=== PATIENT | male | born 1970 | race Caucasian/White ===

== ENCOUNTER 2019-10-29 13:50 | Emergency (ER) | payer MEDICARE, OTHER ==
--- NOTE | 2019-10-29 13:55 | NUR ---
Patient left without being completely triaged. Patient A/Ox4 and mentation intact. Patient states that he changed his mind and does not want to be seen at this time. Does not pose as a threat to himself or others.
== END 2019-10-29 14:16 | disposition left against medical advice (07) ==
LOC: ER 13:50
DX: Z75.3 Unavailability and inaccessibility of health-care facilities (principal)

== ENCOUNTER → 2019-10-29 | Emergency (ER) | payer MEDICARE, OTHER ==
[~2019-10-29] VITALS: Ht 180.3 cm; Wt 74.8 kg
== END | disposition left against medical advice (07) ==
LOC: ER 13:11
DX: Z75.3 Unavailability and inaccessibility of health-care facilities (principal)

== ENCOUNTER 2022-04-13 17:13 | Inpatient (IN) | payer MEDICARE, OTHER ==
[~2022-04-13] VITALS: Ht 193 cm; Wt 73.0 kg
[2022-04-13] MEDS ORDERED: IV NORMAL SALINE 1000 ML BAG IV ONE ×2 (18:45→19:45)
[2022-04-13 19:00] LABS: HEMATOCRIT 36.3 % (36.7-47.1); MEAN CORPUSCULAR HEMOGLOBIN 30.5 uug (23.8-33.4); MEAN CORPUSCULAR VOLUME 86.8 fL (73.0-96.2); PLATELET COUNT (AUTO) 314 K/uL (152-348)
--- NOTE | 2022-04-13 19:13 | NUR ---
Endorsed to Carolyn LOZA.
[2022-04-13 19:32] LABS: BILIRUBIN,DIRECT 0.3 mg/dL (0.0-0.2); BILIRUBIN,TOTAL 0.7 mg/dL (0.2-1.0); CARBON DIOXIDE 25 mmol/L (21-32); CHLORIDE 97 mmol/L (98-107); CREATININE 1.2 mg/dL (0.6-1.3); GLUCOSE 85 mg/dL (74-106); UREA NITROGEN, BLOOD 50 mg/dL (7-18)
[2022-04-13 19:33] LABS: ALANINE AMINOTRANSFERASE 31 U/L (16-63); ALKALINE PHOSPHATASE 93 U/L (50-136); ASPARTATE AMINOTRANSFERASE 83 U/L (15-37); TOTAL PROTEIN, SERUM 8.9 g/dL (6.4-8.2)
[2022-04-13 19:38] LABS: ETHANOL < 3 MG/DL (0-0)
[2022-04-13 19:40] LABS: ACETAMINOPHEN < 10.0 ug/mL (10-30)
[2022-04-13 20:00] VITALS: BP 133/74
[2022-04-13 20:20] LABS: *CLARITY,URINE CLEAR (CLEAR); *COLOR,URINE YELLOW (YELLOW); *KETONES,URINE 2+ (NEGATIVE); *UROBILINOGEN,URINE 0.2 E.U./dl (NORMAL); LEUKOCYTE ESTERASE ,URINE NEGATIVE (NEGATIVE); NITRITE, URINE NEGATIVE (NEGATIVE); UGLUCOSE NEGATIVE (NEGATIVE)
[2022-04-13 20:25] LABS: *BLOOD, URINE TRACE (NEGATIVE)
[2022-04-13 20:26] LABS: *BILIRUBIN,URIN 1+ (NEGATIVE)
[2022-04-13] MEDS ORDERED: LORAZEPAM 2 MG/1 ML VIAL IV ONE (20:30)
[2022-04-13 20:56] LABS: *AMPHETAMINE, URINE NEGATIVE (NEGATIVE); *CANNABINOID, URINE NEGATIVE (NEGATIVE); *COCCAINE, URINE NEGATIVE (NEGATIVE); *OPIATE, URINE NEGATIVE (NEGATIVE); *PHENCYCLIDINE SCREEN,URINE NEGATIVE (NEGATIVE)
--- NOTE | 2022-04-13 21:24 | NUR ---
Called [facility] for panel call. Felicita MOLDING LINE ASSISTANT phone technician. Waiting for call back.
--- NOTE | 2022-04-13 21:28 | NUR ---
Patient has been accepted by Felicita PANIAGUA.
[2022-04-13 21:30] LABS: BACTERIA,URINE NONE SEEN /HPF (NONE SEEN); RBC,URINE 0-3 /HPF (0-3); SQUAMOUS EPITHELIAL CELL,UR FEW /HPF (NONE SEEN); WBC,URINE 0-3 /HPF (0-3)
--- NOTE | 2022-04-13 21:33 | NUR ---
Called third floor. Spoke to Kaycee LOZA. Pt assigned to TELE bed 304.
--- NOTE | 2022-04-13 21:46 | NUR ---
Gave report to Will DAGO.
--- NOTE | 2022-04-13 21:47 | NUR ---
Told ER claims correspondence clerk, patient ready for roll over.
[2022-04-13] MEDS ORDERED: ONDANSETRON 4 MG/2 ML VIAL IV PRN (22:15)
[2022-04-13] MEDS ORDERED: ACETAMINOPHEN 325 MG TABLET PO PRN (22:15)
[2022-04-13] MEDS ORDERED: MAGNESIUM HYDROXIDE 30 ML LIQUID UDC PO PRN (22:15)
[2022-04-13 22:30] VITALS: BP 133/74
--- NOTE | 2022-04-13 22:30 | NUR ---
Admitted patient in Med surg floor under the care of Joanne Mims HOOKER ON, patient too drowsy, eyes open but do not respond to question, unable to obtain medical history due to AMS/too drowsy, assisted to bed, with both lower leg abrasion, patient has long toe nails, no teeth on upper and lower, no dentures, patient able to swallow crushed meds with apple sauce. bed alarm on, call light within reach.
[2022-04-13] MEDS: FOLIC ACID 1 MG TABLET PO SCH (23:10)
[2022-04-13] MEDS: CHLORDIAZEPOXIDE HCL 25 MG CAPSULE PO SCH (23:10)
[2022-04-13] MEDS: THIAMINE HCL 100 MG TABLET PO SCH (23:10)
[2022-04-13] MEDS: ENOXAPARIN SODIUM 40 MG/0.4 ML DISP.SYRIN SQ SCH (23:11)
[2022-04-13] MEDS: IV NS 1000 ML 1,000 ML IV PRN (23:20)
[2022-04-14 04:00] VITALS: BP 107/54
[2022-04-14] MEDS: CHLORDIAZEPOXIDE HCL 25 MG CAPSULE PO SCH ×3 (05:22→21:58)
[2022-04-14 06:28] LABS: HEMATOCRIT 27.9 % (36.7-47.1); MEAN CORPUSCULAR HEMOGLOBIN 31.8 uug (23.8-33.4); MEAN CORPUSCULAR VOLUME 87.2 fL (73.0-96.2); PLATELET COUNT (AUTO) 243 K/uL (152-348)
--- NOTE | 2022-04-14 06:36 | NUR ---
Patient awake, no sob no chest pain, voiding well, no complain of pain, cont on IV hydration, cooperative with care, cont to monitor.
[2022-04-14 06:52] LABS: MAGNESIUM 1.7 mg/dL (1.8-2.4); PHOSPHOROUS 3.4 mg/dL (2.5-4.9); POTASSIUM 3.7 mmol/L (3.5-5.1)
[2022-04-14] MEDS: THIAMINE HCL 100 MG TABLET PO SCH (08:18)
[2022-04-14] MEDS: FOLIC ACID 1 MG TABLET PO SCH (08:18)
[2022-04-14] MEDS: IV NS 1000 ML 1,000 ML IV PRN ×2 (08:26→17:48)
[2022-04-14] MEDS ORDERED: MAGNESIUM OXIDE 400 MG TABLET PO ONE (10:00)
[2022-04-14 11:41] VITALS: BP 95/54
--- NOTE | 2022-04-14 11:53 | NUR ---
Social Work consult was requested on [facility] for homeless resources. Patient is a 51-year-old male admitted to the hospital for altered mental status. Patient appears lethargic. Patient is disoriented and confused. Patient in oriented X0. AURELIA was unable to ascertain primary contact information. AURELIA was unable to ascertain pre-admission living arrangement. AURELIA provided the patient with homeless resources for [facility] [address] [place] [address] ([phone]) and [facility] [address] [facility] [address] ([phone]). AURELIA gave resources for [facility] [address] [address]. AURELIA will continue to follow up. AURELIA unable to ascertain history of substance abuse and toxicology report was negative. AURELIA was unable to ascertain history of psychiatric diagnosis. AURELIA informed pillowcase sewerHerb for the discharge planning.
[2022-04-14 16:00] VITALS: BP 101/54
[2022-04-14 20:00] VITALS: BP 93/56
[2022-04-14] MEDS: ENOXAPARIN SODIUM 40 MG/0.4 ML DISP.SYRIN SQ SCH (20:26)
[2022-04-15] MEDS: IV NS 1000 ML 1,000 ML IV PRN (02:26)
[2022-04-15 04:00] VITALS: BP 105/61
[2022-04-15] MEDS: CHLORDIAZEPOXIDE HCL 25 MG CAPSULE PO SCH (06:02)
[2022-04-15 07:16] LABS: CARBON DIOXIDE 25 mmol/L (21-32); CHLORIDE 106 mmol/L (98-107); CREATININE 0.8 mg/dL (0.6-1.3); GLUCOSE 82 mg/dL (74-106); MAGNESIUM 1.6 mg/dL (1.8-2.4); POTASSIUM 3.7 mmol/L (3.5-5.1); UREA NITROGEN, BLOOD 14 mg/dL (7-18)
[2022-04-15] MEDS: FOLIC ACID 1 MG TABLET PO SCH (08:14)
[2022-04-15] MEDS: THIAMINE HCL 100 MG TABLET PO SCH (08:14)
[2022-04-15] MEDS ORDERED: DIVALPROEX 500 MG TABLET.DR PO SCH (09:00)
[2022-04-15] MEDS ORDERED: MAGNESIUM SULFATE/D5W 100 ML IV SCH (09:45)
[2022-04-15] MEDS ORDERED: MAGNESIUM OXIDE 400 MG TABLET PO ONE (10:00)
--- NOTE | 2022-04-15 10:15 | NUR ---
pt refused to sign the belonging list and exit care paper
--- NOTE | 2022-04-15 10:16 | NUR ---
pt is upset and saying he wants to go home he dress up his clothes and removed his heplock and said he is leaving ,he needs to go home and see his family ,md and charge nurse made aware ,pt left the facility in proper clothing and walk from the hospital in stable condition.
== END 2022-04-15 10:10 | disposition left against medical advice (07) | DRG 640 ==
LOC: ER 17:17 → TELE3 22:09 → MEDSURG3 04-14 00:14
PROVIDERS: ADMIT Nurse Practitioner Acute Care; ATTEND Nurse Practitioner Acute Care
DX: E86.0 Dehydration (principal); G92.8 Other toxic encephalopathy; N17.9 Acute kidney failure, unspecified; E87.1 Hypo-osmolality and hyponatremia; F25.9 Schizoaffective disorder, unspecified; Z59.00 Homelessness unspecified; Z87.891 Personal history of nicotine dependence; Z91.51 Personal history of suicidal behavior; Z20.822 Contact with and (suspected) exposure to COVID-19; F32.9 Major depressive disorder, single episode, unspecified; F10.129 Alcohol abuse with intoxication, unspecified; Y90.0 Blood alcohol level of less than 20 mg/100 ml
CPT/HCPCS: 36415; 51702; 70450; 71045; 72125; 80164; 83735; 84100; 84484; 85025; 93005; A4663; C1758; G0378; G0480; J1650; J2060; J7040